=== PATIENT | female | born 1950 | race Caucasian/White ===

== ENCOUNTER → 2021-05-09 | Outpatient (CLI) | payer OTHER ==
[~2021-05-09] MED LIST: ALENDRONATE SOD70 MG PO; AMARYL4 MG PO; ASA81BEC PO; CALCIUM500 MG PO; FISH OIL 1,0001 EAC9 PO; HYDROCHLOROTHIA25 M1 PO; LIPITOR 20 MG T20 M1 PO; MAGNESIUM500 MG PO; METFORMIN HCL1000 MG PO; MULTI VITAMIN1 EACH PO; NEURONTIN300 MG PO; TRESIBA100 UNIT/1 SUBQ; VITAMIN D350 MC3 PO; ZESTRIL2.5 MG PO
== END ==
LOC: LAB
PROVIDERS: ATTEND Student in an Organized Health Care Education/Training Program
DX: Z01.812 Encounter for preprocedural laboratory examination (principal); Z20.822 Contact with and (suspected) exposure to COVID-19

== ENCOUNTER → 2021-05-11 | Outpatient (CLI) | payer OTHER ==
[~2021-05-11] VITALS: Ht 170.2 cm; Wt 78.5 kg
--- NOTE | 2021-05-18 08:13 | P ---
[facility] [place] [address] PROCEDURE REPORT Name: SHIRA BOSS Room #: REG ДМИТРИЙ Watson#: [id number] Admission: 05/11/21 Attend Phys: Chandana Shukla Discharge: Date of : 52 Report #: [id number] THIS REPORT FOR: cc: Sanjuana Miller MD,Chandana Stephens MD, MD ~ cc: Sanjuana Miller MD DATE OF SERVICE: 05/11/2021 PROCEDURE PERFORMED: Colonoscopy. HISTORY OF PRESENT ILLNESS: The patient is a 71-year-old female with a history of colon polyps, last colonoscopy was 5 years ago. She denies any symptoms at this time. No family history of colon cancer. DESCRIPTION OF PROCEDURE: The risks and benefits of the procedure were explained to the patient, those risks including but not limited to bleeding, perforation and the risk of sedation. She understood these risks and gave informed consent. Sedation was given using propofol per Anesthesia. Next, a digital rectal exam was initially performed, which was normal. Next, using a standard Olympus colonoscope, the scope was placed in the patient's anus and advanced under direct vision to the cecum. The overall prep was good. The cecum and ileocecal valve were normal in appearance. A few small scattered diverticula were noted in the ascending colon, otherwise normal. The transverse colon was normal. Multiple diverticula were noted in the descending and sigmoid colon. No evidence of inflammation, otherwise normal. The rectal mucosa was normal. On retroflexion, no abnormalities were noted. The scope was then withdrawn and the procedure terminated. The patient tolerated the procedure well. IMPRESSION: 1. Diverticulosis. 2. Otherwise, normal colonoscopy. RECOMMENDATIONS: 1. High fiber diet. 2. Repeat colonoscopy in 10 years. Thank you for allowing me to participate in her care. <ELECTRONICALLY SIGNED> By: Chandana Beal MD 05/18/21 [id number] Chandana Beal MD /nt
== END | disposition home or self-care (01) ==
LOC: GI 07:10
PROVIDERS: ATTEND Specialist
DX: Z12.11 Encounter for screening for malignant neoplasm of colon (principal); Z86.010 Personal history of colon polyps; K57.30 Diverticulosis of large intestine without perforation or abscess without bleeding; I10 Essential (primary) hypertension; E11.9 Type 2 diabetes mellitus without complications; E78.00 Pure hypercholesterolemia, unspecified; Z98.890 Other specified postprocedural states; Z79.899 Other long term (current) drug therapy; Z88.8 Allergy status to other drugs, medicaments and biological substances
CPT/HCPCS: 62110; 62900